=== PATIENT | female | born 1965 | race Caucasian/White ===

== ENCOUNTER → 2019-02-14 | Outpatient (CLI) | payer BC ==
--- NOTE | 2019-02-14 11:17 | Diagnostic Imaging Report ---
INDICATION: Routine screening. COMPARISON is made with prior mammograms from 01/01/2014 and 12/26/2012. TECHNIQUE: 2-D and 3-D bilateral screening mammography was performed with CAD. FINDINGS: Both breasts are heterogeneously dense, limiting the sensitivity of mammography. The parenchymal pattern is stable. No mass or malignant-appearing microcalcifications are seen. There are benign calcifications present. The axillae are unremarkable. IMPRESSION: BI-RADS category 2 No mammographic features suspicious for malignancy are identified. Dictated by: Dictated on workstation # [id number]
== END ==
LOC: RAD 08:07
PROVIDERS: ATTEND Nurse Practitioner
DX: Z12.31 Encounter for screening mammogram for malignant neoplasm of breast (principal)
CPT/HCPCS: 77067

== ENCOUNTER → 2020-05-31 | Outpatient (CLI) | payer BC, OTHER ==
--- NOTE | 2020-05-31 11:49 | Diagnostic Imaging Report ---
INDICATION: Routine screening. COMPARISON: 02/14/2019 and 01/01/2014. TECHNIQUE: 2D and 3D bilateral screening mammography was performed with CAD. FINDINGS: Both breasts remain heterogeneously dense, limiting the sensitivity of mammography. No mass or malignant appearing microcalcifications are seen. There are occasional benign calcifications. The axillae are unremarkable. IMPRESSION: No mammographic features suspicious for malignancy are identified. ACR BI-RADS Category 2: Benign findings. Result letter will be mailed to the patient. Note: At least 10% of breast cancer is not imaged by mammography. Dictated by: Dictated on workstation # [id number]
== END ==
LOC: RAD 09:06
PROVIDERS: ATTEND Surgery
DX: Z12.31 Encounter for screening mammogram for malignant neoplasm of breast (principal)
CPT/HCPCS: 77063; 77067

== ENCOUNTER 2020-06-21 05:29 | Outpatient (RCR) | payer OTHER ==
[~2020-06-21] VITALS: Ht 167.6 cm; Wt 89.8 kg
[~2020-06-21 05:29] MED LIST: FLUO20TA28 PO; PHEN37.53 PO
== END 2020-06-21 10:14 | disposition home or self-care (01) ==
LOC: PREOP 05:29
PROVIDERS: ATTEND Surgery
DX: Z01.812 Encounter for preprocedural laboratory examination (principal); Z12.11 Encounter for screening for malignant neoplasm of colon; Z20.828 Contact with and (suspected) exposure to other viral communicable diseases
CPT/HCPCS: 87635

== ENCOUNTER 2020-06-23 08:40 | Day surgery (SDC) | payer OTHER ==
[2020-06-23] VITALS (14 sets, daily range): BP systolic 112–141; BP diastolic 64–80
[2020-06-23] MEDS ORDERED: NS IV 500 ML 500 ML IV PRN (08:47)
--- OUTSIDE RECORDS SUMMARY | 2020-06-23 08:53 | XMS REPORT | Continuity of Care Document ---
Author Organization Unknown Address Unknown Phone Unavailable Allergies Active Description Code Type Severity Reaction Onset Reported/Identified Relationship to Patient Clinical Status Yes No Known Drug Allergies [id number] Drug Allergy Unknown N/A 06/16/2020 Medications There is no data. Problems Date Dx Coded Attending Type Code Diagnosis Diagnosed By 07/13/2015 OLIVER DO, SHANNAN C Ot 793.8 2 07/13/2015 OLIVER DO, SHANNAN C Ot V76.1 2 07/13/2015 OLIVER DO, SHANNNA C Ot 793.8 0 08/16/2015 OLIVER DO, SHANNAN C Ot 793.8 2 08/16/2015 OLIVER DO, SHANNAN C Ot V76.1 2 08/16/2015 OLIVER DO, SHANNAN C Ot 793.8 0 10/18/2015 OLIVER DO, SHANNAN C Ot 793.8 2 10/18/2015 OLIVER DO, SHANNAN C Ot V76.1 2 10/18/2015 OLIVER DO, SHANNAN C Ot 793.8 0 04/12/2016 OLIVER DO, SHANNAN C Ot 793.8 2 INCONCLUSIVE MAMMOGRAM 04/12/2016 OLIVER DO, SHANNAN C Ot V76.1 2 OTH SCREEN MAMMO-MALIGN NEOPLASM OF ZHANE 04/12/2016 OLIVER DO, SHANNAN C Ot 793.8 0 UNSPEC ABNORMAL MAMMOGRAM 04/03/2018 OLIVER DO, SHANNAN C Ot 793.8 2 INCONCLUSIVE MAMMOGRAM 04/03/2018 OLIVER DO, SHANNAN C Ot V76.1 2 OTH SCREEN MAMMO-MALIGN NEOPLASM OF [place]HANE 04/03/2018 OLIVER DO, SHANNAN C Ot 793.8 0 UNSPEC ABNORMAL MAMMOGRAM 03/07/2019 EVANGELINA LEES Ot Z12.3 1 ENCNTR SCREEN MAMMOGRAM FOR MALIGNANT NE 05/27/2020 EVANGELINA LEES Ot Z12.3 1 ENCNTR SCREEN MAMMOGRAM FOR MALIGNANT NE 06/02/2020 ANASTASIIA CHONG MD, Ot Z12.31 ENCNTR SCREEN MAMMOGRAM FOR MALIGNANT NE 06/08/2020 Ot 722.4 06/08/2020 Ot V76.12 06/08/2020 ANASTASIIA CHONG MD, Ot Z12.31 ENCNTR SCREEN MAMMOGRAM FOR MALIGNANT NE 06/17/2020 ANASTASIIA CHONG MD, Ot Z12.31 ENCNTR SCREEN MAMMOGRAM FOR MALIGNANT NE Procedures There is no data. Results There is no data. Encounters ACCT No. Visit Date/Time Discharge Status Pt. Type Provider Facility Loc./Unit Complaint [id number] 06/21/2020 05:29:00 020 10:14:00 DIS Outpatient ANASTASIIA CHONG MD [facility] PREOP SCREENING [id number] 05/31/2020 09:06:00 020 23:59:59 CLS Outpatient ANASTASIIA CHONG MD [facility] RAD SCREENING [id number] 02/14/2019 08:07:00 019 23:59:59 CLS Outpatient EVANGELINA LEES [facility] RAD SCREENING [id number] 01/14/2014 08:12:00 014 23:59:59 CLS Outpatient SHANNAN OLIVER DO [facility] RAD ABNORMAL MAMMO [id number] 01/01/2014 10:21:00 014 23:59:59 CLS Outpatient SHANNAN OLIVER DO [facility] RAD SCREENING [id number] 06/23/2020 09:30:00 P EN Preadmit ANASTASIIA CHONG MD [facility] ENDO SCREENING [id number] 07/26/2009 15:34:00 Document Registration [id number] 11/09/2006 13:05:00 Document Registration
[2020-06-23] MEDS ORDERED: NS IV 500 ML 500 ML ONE (08:54)
[2020-06-23] MEDS ORDERED: fentaNYL INJECTION 100 MCG/2 ML AMP IVP ONE (09:00)
[2020-06-23] MEDS ORDERED: LIDOCAINE JELLY 2% 6 ML SYRINGE MM PRN (09:00)
[2020-06-23] MEDS ORDERED: MIDAZOLAM 2 MG/2 ML (VERSED) VIAL ONE (09:22)
[2020-06-23] MEDS ORDERED: MIDAZOLAM 5 MG/5 ML (VERSED) VIAL ONE (09:23)
[2020-06-23] MEDS ORDERED: fentaNYL INJECTION 100 MCG/2 ML AMP ONE (09:23)
[2020-06-23] MEDS ORDERED: LIDOCAINE JELLY 2% 6 ML SYRINGE ONE (09:23)
[2020-06-23] MEDS: MIDAZOLAM 5 MG/5 ML (VERSED) VIAL IV PRN ×3 (09:25→10:00)
--- NOTE | 2020-06-23 09:46 | Conscious Sedation/ASA ---
Conscious Sedation Pre-Proced Time 09:30 ASA Score 2 For ASA 3 and 4: Consider anesthesia and medical clearance. Also, for patients with a history of failed moderate sedation consider anesthesia. Airway Lungs Heart ASA score ASA 1: a normal healthy patient ASA 2: a patient with a mild systemic disease (mid diabetes, controlled hypertension, obesity ASA 3: a patient with a severe systemic disease that limits activity (angina, COPD, prior Myocardial infarction) ASA 4: a patient with an incapacitating disease that is a constant threat to life (CHF, renal failure) ASA 5: a moribund patient not expected to survive 24 hrs. (ruptured aneurysm) ASA 6: a declared brain- patient whose organs are being harvested. For emergent operations, add the letter E after the classification Mallampati Classification Grade 2 Sedation Plan Analgesia, Amnesia, Plan communicated to team members, Discussed options with patient/fam, Discussed risks with patient/fam The patient is an appropriate candidate to undergo the planned procedure, sedation, and anesthesia. The patient immediately re-assessed prior to indication. ANASTASIIA CHONG MD Jun 23, 2020 09:46
--- NOTE | 2020-06-23 09:46 | Progress Note-Pre Operative ---
Pre-Operative Progress Note H&P Reviewed The H&P was reviewed, patient examined and no changes noted. Date Seen by Provider: Jun 23, 2020 Time Seen by Provider: : Date H&P Reviewed: Jun 23, 2020 Time H&P Reviewed: : Pre-Operative Diagnosis: screening colonoscopy ANASTASIIA CHONG MD Jun 23, 2020 09:46
--- NOTE | 2020-06-23 09:47 | Discharge Inst-Surgical ---
D/C Lap Instructions-CASTILLO Follow Up Activity as tolerated High Fiber Diet 25g or more per day Avoid Alcohol, Caffeine, Spicy [place] and Acid foods. Drink 64 fluid oz or more of fluids per day. Symptoms to Report: Fever over 101 degree F, Nausea/Vomiting If any problems/questions: Contact your physician or go to Emergency Room ANASTASIIA CHONG MD Jun 23, 2020 09:47
[2020-06-23] MEDS ORDERED: ONDANSETRON 4 MG/2 ML (SDV) Z0FRAN IVP PRN (10:00)
[2020-06-23] MEDS ORDERED: morphine INJ 10 MG/ML 1ML (SYR OR VIAL) IVP PRN (10:00)
[2020-06-23] MEDS ORDERED: HYDROcodone/APAP 5 MG/325 MG (LORTAB) TAB PO PRN (10:00)
[2020-06-23] MEDS ORDERED: ACETAMINOPHEN 325 MG TABLET PO PRN (10:00)
--- NOTE | 2020-06-23 10:31 | Progress Note-Post Operative ---
Post-Operative Progess Note Surgeon (s)/Career Services Director (s) Surgeon ANASTASIIA CHONG MD Career Services Director: none Pre-Operative Diagnosis screening colonoscopy Post-Operative Diagnosis very mild proctitis, small polyp splenic flexure(2mm). Procedure & Operative Findings Date of Procedure 06/23/20 Procedure Performed/Findings Colonoscopy with bx. Anesthesia Type cs Estimated Blood Loss Estimated blood loss (mL): minimal Specimens/Packing Specimens Removed splenic flex polyp ANASTASIIA CHONG MD Jun 23, 2020 10:31
--- NOTE | 2020-06-23 14:43 | OPERATIVE REPORT ---
DATE OF SERVICE: 06/23/2020 ATTENDING PRIMARY CARE PHYSICIAN: Avelina Obrien APRN. PREOPERATIVE DIAGNOSIS: Screening colonoscopy. POSTOPERATIVE DIAGNOSES: Very mild proctitis, small polyp of the splenic flexure approximately 2 mm in size. PROCEDURE PERFORMED: Colonoscopy with biopsy. SURGEON: Anastasiia Chong MD. ANESTHESIA: Conscious sedation. ESTIMATED BLOOD LOSS: Minimal. FINDINGS: Same as postoperative diagnosis. DISPOSITION: The patient tolerated the procedure well. INDICATIONS FOR PROCEDURE: The patient is a 55-year-old in need of a screening colonoscopy. She states that she has not had a colonoscopy up to this point in her life. She is otherwise doing well, does not report any major issues with diarrhea nor constipation as well as no red blood per rectum nor any dark tarry stools as well as no abdominal pain. She also does not report any family history of colon cancer. DESCRIPTION OF PROCEDURE: The patient was brought to the endoscopy suite and laid in the left lateral decubitus position. After adequate IV pain and sedative medications and conscious sedation anesthesia, a digital rectal examination was performed. No significant hemorrhoids identified. Normal sphincter tone was felt and there were no palpable masses. The endoscope was then intubated and anus and rectum gently insufflated. There was a very subtle and mild inflammatory response of the rectum, which may indicate a very low asymptomatic proctitis. A biopsy was taken of one of these areas with forceps with visualization of good hemostasis. The endoscope was then advanced through the sigmoid colon, where no diverticulosis identified. At the level of the splenic flexure, a small polyp approximately 2 mm in size was identified. This was biopsied and destroyed using forceps and electrocautery with visualization of good hemostasis. The endoscope was then advanced to the remainder of the transverse and ascending colon to the cecum. These segments were normal. The endoscope was then slowly withdrawn while taking a second look and suctioning of residual air with no additional findings. The patient tolerated the procedure well. We will await the biopsy results of the polyp. If this is a hyperplastic polyp or a tubular adenoma, she may wait 10 years for the next colonoscopy; however, if there is any villous component, we will recommend a followup colonoscopy in three years. Otherwise, we will recommend a high fiber diet with at least 25 grams of fiber daily as well as significant amounts of water to promote soft stools on a daily basis. Job ID: [id number] DocumentID: [id number] Dictated Date: 06/23/2020 10:26:10 Head Filter Press Tender Date: 06/23/2020 14:42:01 Dictated By: ANASTASIIA CHONG MD
== END 2020-06-23 11:05 | disposition home or self-care (01) ==
LOC: ENDO 08:40
PROVIDERS: ATTEND Surgery
DX: Z12.11 Encounter for screening for malignant neoplasm of colon (principal); D12.3 Benign neoplasm of transverse colon; K62.89 Other specified diseases of anus and rectum; J30.2 Other seasonal allergic rhinitis
CPT/HCPCS: 84703

== ENCOUNTER → 2023-05-02 | Outpatient (CLI) | payer BC, OTHER ==
[~2023-05-02] MED LIST changes: -PHEN37.53 PO; +PHEN37.58 PO
--- NOTE | 2023-05-02 12:32 | Diagnostic Imaging Report ---
INDICATION: Routine screening. Comparison is made with prior mammogram 05/31/2020 and 02/14/2019. 2-D and 3-D bilateral screening mammography was performed with CAD. Scattered fibroglandular densities are identified bilaterally. The overall parenchymal pattern is stable. No mass or malignant-appearing microcalcifications are seen. There are benign calcifications. Axillae are unremarkable. IMPRESSION: No mammographic features suspicious for malignancy are identified. ACR BI-RADS Category 2: Benign findings. Result letter will be mailed to the patient. Note: At least 10% of breast cancer is not imaged by mammography. BI-RADS Category 2 Dictated by: Dictated on workstation # [id number]
== END ==
LOC: RAD 10:49
PROVIDERS: ATTEND Nurse Practitioner Family
DX: Z12.31 Encounter for screening mammogram for malignant neoplasm of breast (principal); Z00.01 Encounter for general adult medical examination with abnormal findings; E66.8 Other obesity
CPT/HCPCS: 77063; 77067